=== PATIENT | male | born 1955 | race Caucasian/White ===

== ENCOUNTER → 2018-02-11 | Outpatient (CLI) | payer BC ==
--- NOTE | 2018-02-11 18:29 | RAD ---
Exam: Portable chest History: 63-year-old male with persistent cough Comparison: None Findings: Heart size and pulmonary vasculature are normal. Lungs are clear with no infiltrate or significant ef fusion on either side. Visualized bony thorax is unremarkable as well. Impression Unremarkable chest radiograph with no acute cardiopulmonary abnormality seen. Reported By:
--- NOTE | 2018-02-11 18:37 | RAD ---
Exam: Lumbar spine AP and lateral views History: 63-year-old male with lower back pain. 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 There are 5 [id number] lumbar type verteb ral bodies seen. On the lateral view, 2 mm anterolisthesis of the L4 on L5 vertebral bodies is noted. The other lumbar vertebral bodies are normally aligned. Mild narrowing of the L4-5 and L5-S1 disc sp aces is present. The other lumbar disc spaces are maintained. No acute bony abnormality is identified on this exam. Impression: Mild degenerative changes are present in the lower lumbar spine, as described above. However no acute bony abnormality is seen Reported By:
== END ==
LOC: RAD 18:00
PROVIDERS: ATTEND Nurse Practitioner Family
DX: R05 Cough (principal); M54.5 Low back pain
CPT/HCPCS: 71046; 72100

== ENCOUNTER → 2018-02-17 | Outpatient (CLI) | payer BC ==
--- NOTE | 2018-02-17 11:09 | MRI ---
Indication: Left shoulder pain Exam: MRI left shoulder without contrast. Technique: Routine multiplanar multisequence imaging was performed through the left shoulder. Findings: There is motion artifact throughout the exam. There is moderate narrowing of the glenohumer al joint. No fracture or dislocation is seen. There is a moderate full-thickness tear of the distal s upraspinatus tendon measuring approximately 3.7 cm with the proximal tendon retracted to the level of the acromion. There is mild fluid signal throughout the defect and extending into the surrounding bu rsa. There is moderate thickening and increased signal throughout the infraspinatus tendon. There are moderate hypertrophic changes of the AC joint with mild hooking of the acromion anteriorly causing m oderate narrowing of the acromiohumeral space inferiorly. The labrum and biceps tendon are intact and in good position. Impression: Moderate full-thickness tear of the distal supraspinatus tendon with associated moderate subacromial and subdeltoid bursitis. Moderate infraspinatus tendinopathy. Mild motion artifact. Moderate hypertrophic changes of the AC joint and downsloping of the acromion causing moderate narrow ing of the acromiohumeral space. Reported By:
== END | disposition home or self-care (01) | DRG 556 ==
LOC: RAD 09:15
PROVIDERS: ATTEND Nurse Practitioner Family
DX: M25.512 Pain in left shoulder (principal); S46.812A Strain of other muscles, fascia and tendons at shoulder and upper arm level, left arm, initial encounter; X58.XXXA Exposure to other specified factors, initial encounter
CPT/HCPCS: 73221